=== PATIENT | male | born 1970 | race Two or more races ===

== ENCOUNTER 2024-10-23 15:12 | Emergency (ER) | payer BC ==
[~2024-10-23] VITALS: Ht 172.7 cm; Wt 82.0 kg
--- NOTE | 2024-10-23 15:26 | ED.PDOC ---
HPI Comments 54 y/o M, presents to the ED for CC of chest pain. Patient states, he has been experiencing intermittent substernal pressure like chest pain with associated shortness of breath [id number]. Patient relays, to have experienced similar symptoms in the past [id number] ago and to be told it was d/t allergies. Patient endorses, using an inhaler for symptoms and having relief at times. Patient denies cough, fever, palpitations, headache, or dizziness. No other symptoms or modifying factors present at this time. Vital signs were stable at arrival. Time Seen by MD: 15:15 Primary Care Provider: NONE Reviewed Notes: Nurses Notes, Medications, Allergies Allergies: Coded Allergies: NO KNOWN ALLERGIES (Unverified , 10/04/12) Home Meds No Active Prescriptions or Reported Meds Information Source: Patient Mode of Arrival: Ambulatory Severity: Moderate Timing: Weeks Duration: Since onset Prehospital treatment: None Location: Substernal Radiation: Back Quality: Pressure Onset: With Light Exertion Cardiac Risk Factors: None PE Risk Factors: None History of: None Modifying Factors: Nothing Associated Signs and Symptoms: SOB Past Medical History PAST MEDICAL HISTORY: Denies Surgical History: Denies all surgeries Family History Family History: Unknown Social History Smoker: Cigarettes Alcohol: Denies ETOH Use Drugs: Denies Drug Use Lives In: Home Constitutional: denies: chills, diaphoresis, fatigue, fever, malaise, sweats, weakness, others EENTM: denies: blurred vision, double vision, ear bleeding, ear discharge, ear drainage, ear pain, ear ringing, eye pain, eye redness, hearing loss, mouth pain, mouth swelling, nasal discharge, nose bleeding, nose congestion, nose pain, photophobia, tearing, throat pain, throat swelling, voice changes, others Respiratory: reports: shortness of breath; denies: cough, hemoptysis, ortho pnea, SOB at rest, SOB with excertion, stridor, wheezing, others Cardiovascular: reports: chest pain; denies: dizzy spells, diaphoresis, Dyspnea on exertion, edema, irregular heart beat, left arm pain, lightheadedness, palpitations, PND, syncope, others Gastrointestinal: denies: abdomen distended, abdominal pain, blood streaked bowels, constipated, diarrhea, dysphagia, difficulty swallowing, hematemesis, melena, nausea, poor appetite, poor fluid intake, rectal bleeding, rectal pain, vomiting, others Genitourinary: denies: burning, dysuria, flank pain, frequency, hematuria, incontinence, penile discharge, penile sore, pain, testicle pain, testicle swelling, urgency, others Neurological: denies: dizziness, fainting, headache, left sided numbness, left sided weakness, numbness, paresthesia, pre-existing deficit, right sided numbness, right sided weakness, seizure, speech problems, tingling, tremors, weakness, others Musculoskeletal: denies: back pain, gout, joint pain, joint swelling, muscle pain, muscle stiffness, neck pain, others Integumetry: denies: bruises, change in color, change in hair/nails, dryness, laceration, lesions, lumps, rash, wounds, others Allergic/Immunocompromised: denies: Difficulty Healing, Frequent Infections, Hives, Itching, others Hematologic/Lymphatic: denies: anemia, blood clots, easy bleeding, easy bruising, swollen glands, others Endocrine: denies: excessive hunger, excessive sweating, excessive thirst, excessive urination, flushing, intolerance to cold, intolerance to heat, unexplained weight gain, unexplained weight loss, others Psychiatric: denies: anxiety, bipolar disorder, depression, hopeless, panic disorder, schizophrenia, sleepless, suicidal, others All Other Systems: Reviewed and Negative Physical Exam General Appearance: Moderate Distress ([id number] distress due to chest pain and shortness a breath concerns. Patient appears to be in poor overall health and appears much older than his chronology.), Normal HEENT: Normal ENT Inspection, Pharynx Normal, TMs Normal Neck: Full Range of Motion, Non-Tender, Normal, Normal Inspection Respiratory: Chest Non-Tender, Lungs Clear, No Accessory Muscle Use, No Respiratory Distress, Normal Breath Sounds, Other (Unable to elicit any pain on palpation.) Cardiovascular: No Edema, No JVD, No Murmur, No Gallop, Normal Peripheral Pulses, Regular Rate/Rhythm Breast Exam: Deferred Gastrointestinal: No Organomegaly, Non Tender, No Pulsatile Mass, Normal Bowel Sounds, Soft Genitalia: Deferred Pelvic: Deferred Rectal: Deferred Extremities: No calf tenderness, Normal capillary refill, Normal inspection, Normal range of motion, Non-tender, No pedal edema Neurologic: Alert, 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 Was a procedure done?: No CP Differential Dx Differential Diagnosis: A-fib, A-Flutter, AV Block 1st Degree, VT Differential Diagnosis: HTN Essential, HTN Accelerated Differential Diagnosis: Chest Wall Pain, Costochondritis, Pneumonia X-Ray, Labs, Meds, VS Vital Signs Date Time Temp Pulse Resp B/P (MAP) Pulse Ox O2 Delivery O2 Flow Rate FiO2 10/23/24 18:09 56 20 98 Room Air 10/23/24 18:09 99.0 56 20 116/65 (82) 98 99.0 10/23/24 16:38 51 10/23/24 15:36 20 98 Room Air* 0 21 10/23/24 15:18 54 10/23/24 15:12 97.8 60 15 116/71 (86) 100 97.8 Lab Test 10/23/24 16:20 10/23/24 16:00 10/23/24 15:22 Range/Units Troponin I High Sensitivity < 3 L < 3 L </=54 ng/L Urine Color Light-yellow Yellow Urine Clarity Clear Clear Urine pH 6.5 5.0-9.0 Urine Specific [place] 1.022 1.001-1.035 Urine Protein Negative Negative Urine Ketones Negative Negative Urine Blood Negative Negative /uL Urine Nitrite Negative Negative Urine Bilirubin Negative Negative Urine Urobilinogen Normal Negative mg/dL Urine Leukocyte Esterase Negative Negative /uL Urine RBC None seen 0 - 3 /hpf Urine Microscopic WBC < 1 0-3 /HPF Urine Squamous Epithelial Cells None seen <5 /hpf Urine Bacteria None seen None Seen /hpf Urine Glucose Normal Normal mg/dL White Blood Count 5.9 4.4-10.8 10^3/uL Red Blood Count 4.91 4.5-5.90 10^6/uL Hemoglobin 15.3 13.5-17.5 g/dL Hematocrit 42.6 41.0-53.0 % Mean Corpuscular Volume 86.8 80.0-100.0 fL Mean Corpuscular Hemoglobin 31.1 28.0-32.0 pg Mean Corpuscular Hemoglobin Concent 35.9 32.0-36.0 g/dL Red Cell Distribution Width 13.0 11.8-14.3 % Platelet Count 299 140-450 10^3/uL Mean Platelet Volume 7.5 6.9-10.8 fL Neutrophils (%) (Auto) 64.7 37.0-80.0 % Lymphocytes (%) (Auto) 24.5 10.0-50.0 % Monocytes (%) (Auto) 7.3 0.0-12.0 % Eosinophils (%) (Auto) 3.0 0.0-7.0 % Basophils (%) (Auto) 0.5 0.0-2.0 % Neutrophils # (Auto) 3.8 1.6-8.6 10 ^3/uL Lymphocytes # (Auto) 1.4 0.4-5.4 10 ^3/uL Monocytes # (Auto) 0.4 0-1.3 10 ^3/uL Eosinophils # (Auto) 0.2 0-0.8 10 ^3/uL Basophils # (Auto) 0 0-0.2 10 ^3/uL Nucleated Red Blood Cells 0.1 % Sodium Level 140 136-145 mmol/L Potassium Level 4.0 3.5-5.1 mmol/L Chloride Level 105 98-107 mmol/L Carbon Dioxide Level 25 20-31 mmol/L Anion Gap 10 5-15 Blood Urea Nitrogen 22 9-23 mg/dL Creatinine 0.97 0.700-1.30 mg/dL Glomerular Filtration Rate Calc 94 >90 mL/min BUN/Creatinine Ratio 22.7 H 10.0-20.0 Serum Glucose 109 H 74-106 mg/dL Calcium Level 9.8 8.7-10.4 mg/dL Current Medications Medications (Trade) Dose Ordered Sig/Rosita Route Start Time Stop Time Status Last Admin Albuterol (Ventolin Medneb) 5 mg ONCE ONCE NEB 10/23/24 15:30 10/23/24 15:31 DC 10/23/24 15:36 Ipratropium [place] (Atrovent Medneb) 0.5 mg ONCE ONCE NEB 10/23/24 15:30 10/23/24 15:31 DC 10/23/24 15:36 Dexamethasone Sodium Phosphate (Decadron Injection) 10 mg ONCE ONCE IM 10/23/24 15:30 10/23/24 15:31 DC 10/23/24 15:43 [facility] [id number] [place] [id number] Ph: [phone] DIAGNOSTIC IMAGING Diagnostic Imaging Report : [id number] Signed PATIENT: MAYCOL VAZQUEZOACCT: [id number] UNIT: [id number] : 1970 LOC: ER ROOM / BED: / AGE / SEX: 54 / M ADM STATUS: REG ER SERVICE [id number] ORDERING PHYSICIAN: SHIRLENE FRAUSTO PAC PROCEDURE(s): CXRP - CHEST PORTABLE REASON: Shortness of breath ORDER NUMBER(s): [id number], ACCESSION NUMBER(s): [id number] XY CHEST PORTABLE, HISTORY: Shortness of breath COMPARISON: None None TECHNICAL DATA: 1 view of the chest was obtained. FINDINGS: Lines and tubes: None Cardiomediastinal silhouette: normal Pulmonary vasculature: normal Lung expansion: normal Lung airspace: normal Lung interstitium: normal Pleura: normal Pneumothorax: no Bones: Unremarkable Other: no IMPRESSION: No acute intrathoracic abnormality. ATED BY: ROHIT TERRY MD DICTATED DATE/TIME: 10/23/241546 SIGNED BY: ROHIT TERRY MD SIGNED DATE/TIME: 10/23/241546 CC: X-Ray, Labs, Meds, VS Comment All studies performed the ED were evaluated by me personally. Serum studies were unremarkable for any systemic concerns including unremarkable cardiac markers. Urinalysis was unremarkable. EKG revealed a sinus rhythm with a rate of 54. Baseline wander in multiple leads. ND interval 165 and QT interval of 434. Chest x-ray was unremarkable for any consolidation or intrapulmonary concerns. Unknown as to the cause of the patient's chest pain concern as it does not appear to be costochondritis. Advised patient to follow up with his primary care provider for cardiac referral and evaluation. Time of 1ST Reevaluation: 18:19 Reevaluation 1ST: Unchanged Consultation: PCP, Cardiology Patient Education/Counseling: Diagnosis, Treatment Family Education/Counseling: Diagnosis, Treatment, No Family Present SEPSIS Sepsis Screen Recent Procedure: No On Antibiotic Therapy: No Respiratory Rate >20: No Heart Rate >90: No Temp<36 C (96.8 F) or >38.3 C: No SBP <90 or MAP <65 mmHG: No New Acute Mental Status Change: No Is the patient on CPAP, BIPAP,: No Physician Orders Chest Portable (10/23/24 15:19) Vital Signs Date Time Temp Pulse Resp B/P (MAP) Pulse Ox O2 Delivery O2 Flow Rate FiO2 10/23/24 18:09 56 20 98 Room Air 10/23/24 18:09 99.0 56 20 116/65 (82) 98 99.0 10/23/24 16:38 51 10/23/24 15:36 20 98 Room Air* 0 21 10/23/24 15:18 54 10/23/24 15:12 97.8 60 15 116/71 (86) 100 97.8 Laboratory Tests Test 10/23/24 15:22 White Blood Count 5.9 10^3/uL (4.4-10.8) Medications Medications Dose Ordered Sig/Rosita Route Start Time Stop Time Status Last Admin Dose Admin Albuterol 5 mg ONCE ONCE NEB 10/23/24 15:30 10/23/24 15:31 DC 10/23/24 15:36 Dexamethasone Sodium Phosphate 10 mg ONCE ONCE IM 10/23/24 15:30 10/23/24 15:31 DC 10/23/24 15:43 Ipratropium [place] 0.5 mg ONCE ONCE NEB 10/23/24 15:30 10/23/24 15:31 DC 10/23/24 15:36 Departure 1 Departure Time of Disposition: 18:19 Impression: Primary Impression: Chest pain Disposition: HOME / SELF CARE / HOMELESS Condition: Stable Additional Instructions: Advised patient to follow up with his primary care provider for continued evaluation of chest pain concerns. e-Prescriptions No Active Prescriptions or Reported Meds Discharged With: Self, Friend Critical Care Note Critical Care Time?: No Stability Stability form required: No Heart Score Heart Score: Heart Score Response (Comments) Value History Slightly Suspicious 0 EKG Normal 0 Age 45-64 1 Risk Factors No known risk factors 0 Troponin Normal limit 0 Total 1 I personally scribed for SHIRLENE FRAUSTO PAC ([email or web address]) on 10/23/24 at 15:26. Electronically submitted by Velia Gary ([email or web address]). I personally scribed for SHIRLENE FRAUSTO PAC ([email or web address]) on 10/23/24 at 15:53. Electronically submitted by Velia Gary ([email or web address]). SHIRLENE FRAUSTO PAC Oct 23, 2024 15:26
[2024-10-23 15:30] LABS: Hemoglobin 15.3 g/dL (13.5-17.5); Nucleated Red Blood Cells % 0.1 %
[2024-10-23] MEDS: ALBUTEROL SULF 2.5 MG/0.5ML(0.5%) NEB SOLN NEB ONE (15:36)
[2024-10-23] MEDS: IPRATROPIUM BROM 0.5 MG/2.5ML INH SOL NEB ONE (15:36)
[2024-10-23 15:38] LABS: Chloride 105 mmol/L (98-107); Potassium 4.0 mmol/L (3.5-5.1); Sodium 140 mmol/L (136-145)
[2024-10-23 15:39] LABS: Anion Gap 10 (5-15); Carbon Dioxide 25 mmol/L (20-31)
[2024-10-23 15:40] LABS: Calcium 9.8 mg/dL (8.7-10.4)
[2024-10-23 15:45] LABS: BUN/Creatinine Ratio 22.7 (10.0-20.0); Blood Urea Nitrogen 22 mg/dL (9-23)
[2024-10-23 15:48] LABS: Hematocrit 42.6 % (41.0-53.0); Mean Corpuscular Hemoglobin 31.1 pg (28.0-32.0); Mean Corpuscular Volume 86.8 fL (80.0-100.0)
--- NOTE | 2024-10-23 15:49 | DVH ---
XY CHEST PORTABLE, HISTORY: Shortness of breath COMPARISON: None None TECHNICAL DATA: 1 view of the chest was obtained. FINDINGS: Lines and tubes: None Cardiomediastinal silhouette: normal Pulmonary vasculature: normal Lung expansion: normal Lung airspace: normal Lung interstitium: normal Pleura: normal Pneumothorax: no Bones: Unremarkable Other: no IMPRESSION: No acute intrathoracic abnormality.
[2024-10-23 15:52] LABS: Glucose 109 mg/dL (74-106)
[2024-10-23 16:23] LABS: Urine Protein, UAD Negative (Negative)
--- NOTE | 2024-10-23 16:39 | ECG ---
[facility] Test Date: 2024-10-23 Test Time: 16:38:58 Pat Name: GIACOMO GARCÍA Department: [facility] ED Patient ID: [id number] Room: Gender: M [place]ger: FOZIA : 1970 Requested By: SHIRLENE FRAUSTO Order Number: [id number] Reading MD: Mal Neumann Measurements Intervals [place] Rate: 51 P: 35 DE: 161 QRS: 89 QRSD: 100 T: 31 QT: 461 QTc: 425 Interpretive Statements Sinus rhythm Baseline wander in lead(s) V1,V2,V3 Electronically Signed On 10-26-2024 17:48:40 PDT by Mal Neumann Please click the below link to view image of tracing.
[2024-10-23 18:09] VITALS: BP 116/65; PULSE 56; RESP 20; TEMP 99; O2SAT 98
== END 2024-10-23 18:32 | disposition home or self-care (01) ==
LOC: ER 15:17
DX: R07.89 Other chest pain (principal); F17.210 Nicotine dependence, cigarettes, uncomplicated
CPT/HCPCS: 36415; 71045; 80048; 81001; 84484; 85025; 93005; 94640; 96372; 99285; J1100